=== PATIENT | male | born 1975 | race Caucasian/White ===

== ENCOUNTER 2022-02-23 22:01 | Inpatient (IN) | payer MEDICAID, OTHER ==
[~2022-02-23] VITALS: Ht 170.2 cm; Wt 66.2 kg
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
[2022-02-23] MEDS ORDERED: HYDROCODONE/APAP 5/325MG TABLET ONE (22:30)
[2022-02-23] MEDS ORDERED: CARISOPRODOL 350 MG TABLET PO ONE (22:30)
[2022-02-23] MEDS ORDERED: CARISOPRODOL 350 MG TABLET ONE (22:30)
[2022-02-23] MEDS ORDERED: HYDROCODONE/APAP 5/325MG TABLET PO ONE (22:30)
--- NOTE | 2022-02-23 22:44 | NUR ---
PT TAKEN TO CT VIA SITA
--- NOTE | 2022-02-23 22:55 | NUR ---
PT RETURNED TO ER BED [address]
--- NOTE | 2022-02-23 23:15 | NUR ---
RADIOLOGY FOCUS IMAGING ON PHONE CALL WITH DR. CRISTINA SULTANA
--- NOTE | 2022-02-23 23:53 | NUR ---
PT TAKEN TO CT VIA SITA
--- NOTE | 2022-02-24 00:02 | NUR ---
PT RETURNED TO ER BED [address]
--- NOTE | 2022-02-24 00:06 | NUR ---
COVID SWAB COLLECTED
[2022-02-24 00:07] LABS: BASOPHILS % (AUTO) 0.1 % (0.0-2.0); EOSINOPHILS % (AUTO) 0.4 % (0.0-6.0); HEMATOCRIT 45 % (39-51); HEMOGLOBIN 15.1 g/dL (13.5-17.5); LYMPHOCYTES # (AUTO) 1.2 K/uL (0.8-4.8); LYMPHOCYTES % (AUTO) 9.5 % (20.0-44.0); MEAN CORPUSCULAR HGB CONC 34 g/dl (31.0-36.0); MEAN CORPUSCULAR VOLUME 90 fL (80-96); MONOCYTES # (AUTO) 0.8 K/uL (0.1-1.30); MONOCYTES % (AUTO) 5.8 % (2.0-12.0); NEUTROPHILS % (AUTO) 84.2 % (43.0-81.0); PLATELET COUNT (AUTO) 254 K/uL (150-450); RED BLOOD CELL COUNT(AUTO) 5.03 MIL/uL (4.5-6.0); WHITE BLOOD COUNT (AUTO) 13.1 K/uL (4.3-11.0)
[2022-02-24 00:25] LABS: CREATININE 0.9 mg/dL (0.6-1.3); POTASSIUM 3.9 mmol/L (3.5-5.1)
[2022-02-24 00:29] LABS: BILIRUBIN,DIRECT 0.1 mg/dL (0.0-0.2); BILIRUBIN,TOTAL 0.5 mg/dL (0.2-1.0); TOTAL PROTEIN, SERUM 6.7 g/dL (6.4-8.2)
--- NOTE | 2022-02-24 00:49 | NUR ---
DR. EVANS ON PHONE CALL WITH DR. BLISS RADIOLOGIST
--- NOTE | 2022-02-24 01:08 | NUR ---
DR EVANS ON THE PHONE WITH DR SALES FOR NEURO CONSULT
--- NOTE | 2022-02-24 01:22 | NUR ---
SPOKE TO ERASMO DIRECTOR [employer] SALES AND CLINICALS GIVEN OVER THE PHONE. AUTHORIZED TO STAY
--- NOTE | 2022-02-24 01:40 | NUR ---
PT REMOVED C COLLAR FROM NECK. EXPLAINED RISK TO PT. REFUSES TO HAVE IT ON, MD AWARE
--- NOTE | 2022-02-24 01:49 | NUR ---
BED 315-1
--- NOTE | 2022-02-24 02:08 | NUR ---
REPORT GIVEN TO 3W
[2022-02-24] MEDS ORDERED: ONDANSETRON HCL/PF 4 MG/2 ML VIAL IVP PRN (03:00)
[2022-02-24] MEDS ORDERED: HYDROCODONE/APAP 5/325MG TABLET PO PRN (03:00)
[2022-02-24] MEDS ORDERED: MORPHINE SULFATE INJ 2 MG/ML DISP.SYRIN IV PRN (03:00)
[2022-02-24] MEDS ORDERED: ACETAMINOPHEN 325 MG TABLET PO PRN (03:00)
[2022-02-24] MEDS ORDERED: MAGNESIUM HYDROXIDE 30 ML UDC PO PRN (03:00)
--- NOTE | 2022-02-24 03:10 | NUR ---
C COLLAR WA PLACED BACK VERY GENTLY WITH NO MOVEMENT AND 2 PEOPLE ASSIST AND THE RISK OF TAKING IT OFF WAS EMPHASISED TO THE PT. 4X4 GAUZES ARE USED AT THE EDGES CUSHION TO KEEP THE PATIENT MORE COMFORTABLE. NO NEURO DEFICIT WAS NOTED.
--- NOTE | 2022-02-24 03:22 | NUR ---
PATIENT WITH C/O LOWER BACK PAIN. HENRI BEDOLLA NP MADE AWARE WITH AN ORDER FOR CT LUMBAR WO. PATIENT MADE AWARE.
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
[2022-02-24 04:00] VITALS: BP 119/77
[2022-02-24 07:01] LABS: BASOPHILS % (AUTO) 0.2 % (0.0-2.0); EOSINOPHILS % (AUTO) 0.3 % (0.0-6.0); HEMATOCRIT 43 % (39-51); HEMOGLOBIN 14.9 g/dL (13.5-17.5); LYMPHOCYTES # (AUTO) 1.5 K/uL (0.8-4.8); LYMPHOCYTES % (AUTO) 17.6 % (20.0-44.0); MEAN CORPUSCULAR HGB CONC 35 g/dl (31.0-36.0); MEAN CORPUSCULAR VOLUME 89 fL (80-96); MONOCYTES # (AUTO) 0.7 K/uL (0.1-1.30); MONOCYTES % (AUTO) 8.4 % (2.0-12.0); NEUTROPHILS # (AUTO) 6.3 K/uL (1.8-8.9); NEUTROPHILS % (AUTO) 73.5 % (43.0-81.0); PLATELET COUNT (AUTO) 242 K/uL (150-450); RED BLOOD CELL COUNT(AUTO) 4.83 MIL/uL (4.5-6.0); WHITE BLOOD COUNT (AUTO) 8.5 K/uL (4.3-11.0)
--- NOTE | 2022-02-24 07:02 | NUR ---
RN NOTES: HE REFUSED FOR ORAL MEDS, FOR LABS THIS MORNING, TO BE SEEN BY NEUROSURGEON, TRYING TO TAKE A NAP IN BETWEEN , KEPT NPO, NO URINE SINCE HE CAME AT 340AM, KEPT CALL LIGHT WITHIN EASY REACH, SAFETY AND ASPIRATION PRECAUTION OBSERVED.ENDORSED FOR CONTINUITY OF CARE. Addendum: 02/24/22 at 0731 by ANTONETTE YANES RN ADDED NOTES: HIS CELL PHONE , HIS WALLET WITH MONEY AND HIS CARDS ARE ALL WITH HIM, HE WANTS TO KEEP IT.HE REFUSE TO KEEP IN THE SAFE.
[2022-02-24 07:06] LABS: CALCIUM, SERUM 8.5 mg/dL (8.5-10.1); CREATININE 0.8 mg/dL (0.6-1.3); MAGNESIUM 2.4 mg/dL (1.8-2.4); POTASSIUM 3.3 mmol/L (3.5-5.1)
[2022-02-24] MEDS: PANTOPRAZOLE 40 MG TABLET.DR PO SCH (07:30)
--- NOTE | 2022-02-24 07:54 | NUR ---
RN OPENING NOTE PATIENT AWAKE IN BED RESTING, A/O X 4. NO S/S OF PAIN NOTED AT THIS TIME. ON ROOM AIR, NO DISTRESS OR SHORTNESS OF BREATH NOTED. IV ACCESS RAC #20G, INTACT, PATENT AND FLUSHING WELL. FALL AND SAFETY MEASURES IN PLACE, BED ALARM ON, BED IN LOW AND LOCK POSITION, CALL LIGHT AND TABLE WITHIN EASY REACH, SIDE RAILS UP X2. WILL CONTINUE TO MONITOR.
[2022-02-24 08:00] VITALS: BP 113/66
[2022-02-24] MEDS ORDERED: POTASSIUM CHLORIDE 20 MEQ TAB.PRT.SR PO SCH (11:00)
[2022-02-24 15:46] VITALS: BP 104/59
--- NOTE | 2022-02-24 18:41 | NUR ---
RN CLOSING NOTE PATIENT AWAKE IN BED RESTING, A/O X 4. PAIN LEVEL 4/10 NOTED AT THIS TIME, PAIN MEDICATION WAS GIVEN DURING THE SHIFT. ON ROOM AIR, NO DISTRESS OR SHORTNESS OF BREATH NOTED. IV ACCESS RAC #20G, INTACT, PATENT AND FLUSHING WELL. ALL NEEDS ATTENDED AND ANTICIPATED. FALL AND SAFETY MEASURES IN PLACE, BED ALARM ON, BED IN LOW AND LOCK POSITION, CALL LIGHT AND TABLE WITHIN EASY REACH, SIDE RAILS UP X2. WILL ENDORSE TO MOTORS AND CONTROLS TESTER.
--- NOTE | 2022-02-24 19:30 | NUR ---
MS RN OPENING NOTES - RECEIVED PATIENT AWAKE, LAYING FLAT IN BED. MALE VISITOR ON BEDSIDE. A/O X4. BREATHING EVEN AND NON-LABORED ON ROOM AIR. NOT IN APPARENT DISTRESS. ABLE TO LIFT HIS LOWER EXTREMITIES, LEFT GREATER THAN RIGHT. VERBALIZED PAIN 8/10 ON RIGHT SIDE, REFUSED PRN MORPHINE SULFATE 2MG. HAS RIGHT ANTECUBITAL IV ACCESS #20G AND SALINE LOCKED. INTACT, PATENT AND FLUSHING. SAFETY PRECAUTIONS MAINTAINED. BED LOCKED AND IN LOW POSITION, SIDE RAILS UP X2, CALL LIGHT WITHIN REACH. WILL CONTINUE PLAN OF CARE.
--- NOTE | 2022-02-24 19:47 | NUR ---
RECEIVED CALL FROM MILLER ABOUT POSITIVE MRI RESULT. HOSPITALIST CHIOMA MORLEY. ORDERED STAT HEAD CT W/O CONTRAST.
[2022-02-24 20:00] VITALS: BP 154/88
--- NOTE | 2022-02-24 20:38 | NUR ---
PATIENT TRANSFERRED TO RADIOLOGY FOR HEAD CT
--- NOTE | 2022-02-24 20:43 | NUR ---
PATIENT BACK FROM CT SCAN IN STABLE CONDITION.
--- NOTE | 2022-02-24 21:25 | NUR ---
SEEN BY HENRI BEDOLLA, GEOLOGY FACULTY MEMBER ON BEDSIDE. DISCUSSED PLAN OF CARE, VERBALIZED UNDERSTANDING. PER HENRI, NO NEED TO KEEP PATIENT ON NPO.
--- NOTE | 2022-02-25 02:15 | NUR ---
PATIENT DIDN'T RECEIVE POTASSIUM REPLACEMENT EARLIER D/T NPO STATUS. NOTIFIED HOSPITALIST VIVIAN BEDOLLA AND ORDERED POTASSIUM CHLORIDE 20MEQ 1 TAB PO ONCE. CLARIFIED, NOTED AND CARRIED OUT.
[2022-02-25] MEDS ORDERED: POTASSIUM CHLORIDE 20 MEQ TAB.PRT.SR PO ONE (02:30)
[2022-02-25 05:53] LABS: BASOPHILS % (AUTO) 0.4 % (0.0-2.0); EOSINOPHILS % (AUTO) 0.4 % (0.0-6.0); HEMATOCRIT 45 % (39-51); HEMOGLOBIN 15.4 g/dL (13.5-17.5); LYMPHOCYTES # (AUTO) 1.3 K/uL (0.8-4.8); LYMPHOCYTES % (AUTO) 15.8 % (20.0-44.0); MEAN CORPUSCULAR HGB CONC 34 g/dl (31.0-36.0); MEAN CORPUSCULAR VOLUME 89 fL (80-96); MONOCYTES # (AUTO) 0.8 K/uL (0.1-1.30); MONOCYTES % (AUTO) 9.4 % (2.0-12.0); PLATELET COUNT (AUTO) 238 K/uL (150-450); RED BLOOD CELL COUNT(AUTO) 5.05 MIL/uL (4.5-6.0); WHITE BLOOD COUNT (AUTO) 8.1 K/uL (4.3-11.0)
[2022-02-25 06:10] LABS: CALCIUM, SERUM 8.8 mg/dL (8.5-10.1); CREATININE 0.9 mg/dL (0.6-1.3); MAGNESIUM 2.4 mg/dL (1.8-2.4); PHOSPHORUS 3.5 mg/dL (2.5-4.9); POTASSIUM 3.7 mmol/L (3.5-5.1)
--- NOTE | 2022-02-25 07:00 | NUR ---
MS RN CLOSING NOTES - PATIENT SLEEPING, EASY TO AROUSE. NOT IN RESPIRATORY OR CARDIAC DISTRESS. NO SOB OR NOTED, SATURATING AT 96% ON ROOM AIR. TOLERATES PAIN BY INACTIVITY. AFEBRILE. NO S/S OF INFILTRATION ON RIGHT ANTECUBITAL IV ACCESS. ALL DUE MEDS GIVEN AND NEEDS ATTENDED. DISCUSSED PLAN OF CARE WITH PATIENT, VERBALIZED UNDERSTANDING. SAFETY PRECAUTIONS MAINTAINED. WILL ENDORSE TO NEXT SHIFT FOR CONTINUITY OF CARE.
[2022-02-25 08:00] VITALS: BP 112/67
--- NOTE | 2022-02-25 08:08 | NUR ---
MS RN NOTES: RECEIVED PATIENT ASLEEP, EASILY ROUSED A/O X4, ABLE TO MAKE NEEDS KNOWN. NO S/S OF RESPIRATORY OR CARDIAC DISTRESS; NO SOB NOTED, SATURATING AT 96% ON ROOM AIR. IV ACCESS ON R AC #20 SL. C- COLLAR NOTED, AFFIXED PROPERLY, PT RE-ORIENTED ON RATIONALE OF KEEPING C-COLLAR ON, PT VERBALIZED UNDERSTANDING. ALL SAFETY MEASURES IN PLACE. CALL LIGHT AND TABLE WITHIN EASY REACH WILL CONT WITH PLAN OF CARE DURING SHIFT.
[2022-02-25] MEDS: PANTOPRAZOLE 40 MG TABLET.DR PO SCH (08:56)
[2022-02-25 16:00] VITALS: BP 124/77
--- NOTE | 2022-02-25 18:30 | NUR ---
MS RN NOTES: COAL GRADER SPOKE TO ARTURO Boyer NP. PER FOAM CHARGER, PATIENT IS CLEARED FOR PT AND OT EVAL. PT IS OK FOR DC PLANNING IN AM 02/26/2022. PT OK TO AMBULATE TO BATHROOM WITH 2 PERSON ASSIST WHILE KEEPING NECK STABILIZE IN BRACES.
--- NOTE | 2022-02-25 18:51 | NUR ---
MS RN CLOSING NOTES: PATIENT ASLEEP, EASILY ROUSED A/O X4, ABLE TO MAKE NEEDS KNOWN. NO S/S OF RESPIRATORY OR CARDIAC DISTRESS; NO SOB NOTED, ON RA. IV ACCESS ON R AC #20 SL. C- COLLAR NOTED, AFFIXED PROPERLY, PT RE-ORIENTED ON RATIONALE OF KEEPING C-COLLAR ON, PT VERBALIZED UNDERSTANDING. ALL NEEDS MET, KEPT PT CLEAN, DRY AND COMFORTABLE. ALL SAFETY MEASURES IN PLACE. CALL LIGHT, TABLE AND URINAL WITHIN EASY REACH; WILL ENDORSE TO PM SHIFT.
--- NOTE | 2022-02-25 19:30 | NUR ---
MS RN OPENING NOTES - RECEIVED PATIENT AWAKE, BED IN SEMI-ZUNIGA'S. A/O X4. C-COLLAR NOT IN PLACE, REMINDED PATIENT THAT HE NEEDS TO WEAR IT ALL THE TIME. BREATHING EVEN AND NON-LABORED ON ROOM AIR. NOT IN APPARENT DISTRESS. ABLE TO MOVE ALL HIS EXTREMITIES WITHOUT PAIN. HAS RIGHT ANTECUBITAL IV ACCESS #20G AND SALINE LOCKED. NO S/S OF INFILTRATION NOTED. SAFETY PRECAUTIONS MAINTAINED. BED LOCKED AND IN LOW POSITION, SIDE RAILS UP X2, BED ALARM ON, CALL LIGHT WITHIN REACH. WILL CONTINUE PLAN OF CARE.
[2022-02-25 20:00] VITALS: BP 124/79
--- NOTE | 2022-02-25 21:57 | NUR ---
PATIENT REMOVED HIS C-COLLAR AGAIN, EXPLAINED IMPORTANCE OF STABILIZING HIS NECK. PATIENT AGREED AND PUT HIS C-COLLAR BACK ON.
[2022-02-26 06:45] LABS: BASOPHILS % (AUTO) 0.4 % (0.0-2.0); EOSINOPHILS % (AUTO) 1.4 % (0.0-6.0); HEMATOCRIT 47 % (39-51); HEMOGLOBIN 16.2 g/dL (13.5-17.5); LYMPHOCYTES # (AUTO) 1.3 K/uL (0.8-4.8); LYMPHOCYTES % (AUTO) 16.8 % (20.0-44.0); MEAN CORPUSCULAR HGB CONC 35 g/dl (31.0-36.0); MEAN CORPUSCULAR VOLUME 89 fL (80-96); MONOCYTES # (AUTO) 0.7 K/uL (0.1-1.30); MONOCYTES % (AUTO) 9.5 % (2.0-12.0); NEUTROPHILS # (AUTO) 5.6 K/uL (1.8-8.9); NEUTROPHILS % (AUTO) 71.9 % (43.0-81.0); PLATELET COUNT (AUTO) 251 K/uL (150-450); RED BLOOD CELL COUNT(AUTO) 5.26 MIL/uL (4.5-6.0); WHITE BLOOD COUNT (AUTO) 7.8 K/uL (4.3-11.0)
--- NOTE | 2022-02-26 06:47 | NUR ---
MS RN CLOSING NOTES - PATIENT SLEEPING, EASY TO AROUSE. ABLE TO VERBALIZE NEEDS. NOT IN RESPIRATORY OR CARDIAC DISTRESS. NO SOB OR NOTED. NO C/O PAIN AT THIS TIME. AFEBRILE. RIGHT ANTECUBITAL IV ACCESS #20G INTACT, PATENT AND FLUSHING. ALL NEEDS ATTENDED AND ANTICIPATED. REINFORCED THE USE OF C-COLLAR. SAFETY PRECAUTIONS MAINTAINED. WILL ENDORSE TO NEXT SHIFT FOR CONTINUITY OF CARE.
--- NOTE | 2022-02-26 07:00 | NUR ---
MS RN OPENING NOTES PATIENT LAYING IN BED, A/O X 4, ABLE TO MAKE NEEDS KNOWN, TOLERATING WELL ON ROOM AIR WITH NO S/S RESPIRATORY DISTRESS. NO COMPLAINTS OF PAIN OR DISCOMFORT AT THIS TIME. R AC # 20 SL CLEAN, INTACT, FLUSHING WELL. SAFETY MEASURES IN PLACE: BED IN LOWEST LOCKED POSITION, SIDE RAILS UP X 2, CALL LIGHT WITHIN REACH. WILL CONTINUE TO MONITOR.
[2022-02-26 07:28] LABS: CALCIUM, SERUM 9.1 mg/dL (8.5-10.1); CREATININE 0.9 mg/dL (0.6-1.3); MAGNESIUM 2.3 mg/dL (1.8-2.4); PHOSPHORUS 4.4 mg/dL (2.5-4.9); POTASSIUM 3.6 mmol/L (3.5-5.1)
[2022-02-26] MEDS: PANTOPRAZOLE 40 MG TABLET.DR PO SCH (07:46)
[2022-02-26 08:32] VITALS: BP 109/64
--- NOTE | 2022-02-26 18:55 | NUR ---
MS MCALLISTER CLOSING NOTES PATIENT LAYING IN BED, A/O X 4, ABLE TO MAKE NEEDS KNOWN, TOLERATING WELL ON ROOM AIR WITH NO S/S RESPIRATORY DISTRESS. NO COMPLAINTS OF PAIN OR DISCOMFORT AT THIS TIME. R AC # 20 SL CLEAN, INTACT, FLUSHING WELL. SAFETY MEASURES IN PLACE: BED IN LOWEST LOCKED POSITION, SIDE RAILS UP X 2, CALL LIGHT WITHIN REACH. ALL NEEDS MET. WILL ENDORSE TO TOOL POLISHER FOR CARMITA. Addendum: 02/26/22 at 1904 by HOMER LLANOS RN REINFORCED IMPORTANCE OF MAINTAINING CERVICAL COLLAR IN PLACE
--- NOTE | 2022-02-26 19:40 | NUR ---
MS RN OPENING NOTES RECEIVED PATIENT IN BED AWAKE, ALERT AND ORIENTED. A/O X 4. ABLE TO MAKE NEEDS KNOWN. NO S/S OF RESPIRATORY DISTRESS, ON ROOM AIR. NO COMPLAINTS OF PAIN OR DISCOMFORT AT THIS TIME. SAFETY MEASURES GIVEN WITH BED IN LOWEST LOCKED POSITION, SIDE RAILS UP X 2, CALL LIGHT WITHIN REACH. WILL CONTINUE WITH THE PLAN OF CARE.
[2022-02-26 20:00] VITALS: BP 110/77
--- NOTE | 2022-02-27 06:40 | NUR ---
MS RN CLOSING NOTES PATIENT IN BED AWAKE, ALERT AND ORIENTED. A/O X 4. ABLE TO MAKE NEEDS KNOWN. NO S/S OF RESPIRATORY DISTRESS, ON ROOM AIR. NO COMPLAINTS OF PAIN OR DISCOMFORT AT THIS TIME. SAFETY MEASURES GIVEN WITH BED IN LOWEST LOCKED POSITION, SIDE RAILS UP X 2, CALL LIGHT WITHIN REACH. WILL ENDORSE TO THE NEXT SHIFT FOR CONTINUITY OF CARE.
--- NOTE | 2022-02-27 07:00 | NUR ---
MS RN OPENING NOTES PATIENT LAYING IN BED, A/O X 4, ABLE TO MAKE NEEDS KNOWN, TOLERATING WELL ON ROOM AIR WITH NO S/S RESPIRATORY DISTRESS. NO COMPLAINTS OF PAIN OR DISCOMFORT AT THIS TIME. SAFETY MEASURES IN PLACE: BED IN LOWEST LOCKED POSITION, SIDE RAILS UP X 2, CALL LIGHT WITHIN REACH. WILL CONTINUE TO MONITOR.
[2022-02-27] MEDS: PANTOPRAZOLE 40 MG TABLET.DR PO SCH (07:30)
[2022-02-27 08:00] VITALS: BP 108/66
--- NOTE | 2022-02-27 11:38 | NUR ---
MS BOOM MASTER NOTES PATIENT MADE AWARE OF MD DISCHARGE ORDER AND INSTRUCTIONS. PATIENT VERBALIZED UNDERSTANDING OF MD DISCHARGE INSTRUCTIONS AND SIGNED MD ORDER INSTRUCTIONS SHEET. PATIENT ALSO VERBALIZED POSSESSION OF ALL BELONGINGS AND SIGNED BELONGINGS SHEET. IV LINE AND ID BAND REMOVED. ALL PAPERWORK, AND IMAGING CDS, PROVIDED TO PATIENT. PATIENT EDUCATION RE-INFORCED REGARDING USE OF CERVICAL COLLAR AT ALL TIMES. PATIENT TRANSPORTED OFF OF UNIT WITH [facility] FOR HOME USE AND ACCOMPANIED BY FAMILY AND RN. PATIENT TRANSFERRED TO PRIVATE VEHICLE WITHOUT INCIDENT.
== END 2022-02-27 11:30 | disposition home health service (06) | DRG 347 ==
LOC: ER 22:04 → TELE 02-24 01:50 → MED 02-24 02:54
PROVIDERS: ADMIT Registered Nurse; ATTEND Registered Nurse
DX: S12.600A Unspecified displaced fracture of seventh cervical vertebra, initial encounter for closed fracture (principal); S22.039A Unspecified fracture of third thoracic vertebra, initial encounter for closed fracture; V49.9XXA Car occupant (driver) (passenger) injured in unspecified traffic accident, initial encounter; Y92.410 Unspecified street and highway as the place of occurrence of the external cause
CPT/HCPCS: 36415; 70450-TC; 72125-TC; 72128-TC; 72131-TC; 72141-TC; 72146-TC; 72148-TC; 72192-TC; 80048-TC; 80076-TC; 83735-TC; 84100-TC; 85025-TC; 85730-TC; 87081-TC; 97116-TC; 97530-TC; C9803; G0378; J2270; L0172